=== PATIENT | female | born 1960 | race Caucasian/White ===

== ENCOUNTER 2023-12-18 08:16 | Day surgery (SDC) | payer MEDICARE ==
[~2023-12-18] VITALS: Ht 162.6 cm; Wt 139.2 kg
[~2023-12-18 08:16] MED LIST: ATOR40TA75 PO; BUSP5TA PO; CARV6.25 PO; DILT120C89 PO; FOLI1TAB11 PO; FURO80TA2 PO; GABA-282 PO; LISI40TA4 PO; PHENYLEPHRINE 10% OPHTH SOL 5ML OD PRN; SEMA0.5P SC; TREL1AER INH
[2023-12-18] MEDS: TROPICAMIDE 1% OPHTH SOLN 15ML OD SCH (10:14)
[2023-12-18] MEDS: ATROPINE SULFATE 1% OPHTH SOLN 2ML BTL OD SCH (10:14)
[2023-12-18] MEDS: PHENYLEPHRINE 2.5% OPHTH SOL 2ML OD SCH (10:15)
[2023-12-18] MEDS: LIDOCAINE 3.5 % 1ML OPHTH TOPICAL GEL OU ONE (10:15)
[2023-12-18] MEDS: OFLOXACIN 0.3 % (OCUFLOX) OPTH SOL 5ML OD ONE (10:15)
[2023-12-18] MEDS ORDERED: MIDAZOLAM INJ 2MG/2ML VIAL As Ordered ONE (12:05)
[2023-12-18] MEDS ORDERED: fentaNYL 100 MCG/2 ML INJECTION As Ordered ONE (12:05)
[2023-12-18] MEDS: CEFUROXIME 1MG/0.1ML INTRACAMERAL INJ As Ordered ONE (12:10)
[2023-12-18] MEDS: CARBACHOL 0.01% OPHTH SOLN 1.5ML VIAL As Ordered ONE (12:10)
[2023-12-18] MEDS: LIDOCAINE 1% SDV 5ML VIAL As Ordered ONE (12:10)
[2023-12-18] MEDS: BSS IRRIG/VANCO(10MG)/TOBRA(5MG)/EPINEPH(1:1000-0.5CC)500ML BAG-ORONLY As Ordered ONE (12:10)
[2023-12-18 12:24] VITALS: BP 121/60; TEMP 97.4; O2SAT 95
== END 2023-12-18 12:40 | disposition home or self-care (01) ==
LOC: M SDC 08:16
PROVIDERS: ATTEND Ophthalmology
DX: H25.11 Age-related nuclear cataract, right eye (principal); I11.0 Hypertensive heart disease with heart failure; I50.9 Heart failure, unspecified; J44.9 Chronic obstructive pulmonary disease, unspecified; E78.00 Pure hypercholesterolemia, unspecified; I25.2 Old myocardial infarction; Z95.5 Presence of coronary angioplasty implant and graft; Z79.899 Other long term (current) drug therapy; Z79.51 Long term (current) use of inhaled steroids; Z95.0 Presence of cardiac pacemaker; Z90.710 Acquired absence of both cervix and uterus
CPT/HCPCS: 66984; 92015; J0697; J2250; J3010; V2632

== ENCOUNTER 2023-12-25 10:11 | Day surgery (SDC) | payer MEDICARE ==
[~2023-12-25] VITALS: Ht 162.6 cm; Wt 139.3 kg
[~2023-12-25 10:11] MED LIST changes: +MIDAZOLAM INJ 2MG/2ML VIAL As Ordered ONE; -PHENYLEPHRINE 10% OPHTH SOL 5ML OD PRN; +PHENYLEPHRINE 10% OPHTH SOL 5ML OS PRN; +fentaNYL 100 MCG/2 ML INJECTION As Ordered ONE
[2023-12-25] MEDS: TROPICAMIDE 1% OPHTH SOLN 15ML OS SCH (11:18)
[2023-12-25] MEDS: LIDOCAINE 3.5 % 1ML OPHTH TOPICAL GEL OU ONE (11:18)
[2023-12-25] MEDS: PHENYLEPHRINE 2.5% OPHTH SOL 2ML OS SCH (11:18)
[2023-12-25] MEDS: ATROPINE SULFATE 1% OPHTH SOLN 2ML BTL OS SCH (11:18)
[2023-12-25] MEDS: OFLOXACIN 0.3 % (OCUFLOX) OPTH SOL 5ML OS ONE (11:18)
[2023-12-25] MEDS: CARBACHOL 0.01% OPHTH SOLN 1.5ML VIAL As Ordered ONE (11:59)
[2023-12-25] MEDS: BSS IRRIG/VANCO(10MG)/TOBRA(5MG)/EPINEPH(1:1000-0.5CC)500ML BAG-ORONLY As Ordered ONE (12:00)
[2023-12-25] MEDS: LIDOCAINE 1% SDV 5ML VIAL As Ordered ONE (12:00)
[2023-12-25] MEDS: CEFUROXIME 1MG/0.1ML INTRACAMERAL INJ As Ordered ONE (12:09)
[2023-12-25 12:17] VITALS: BP 152/78; TEMP 97.2; O2SAT 95
== END 2023-12-25 12:28 | disposition home or self-care (01) ==
LOC: M SDC 10:11
PROVIDERS: ATTEND Ophthalmology
DX: H25.12 Age-related nuclear cataract, left eye (principal); H57.03 Miosis; J44.9 Chronic obstructive pulmonary disease, unspecified; I11.0 Hypertensive heart disease with heart failure; I50.9 Heart failure, unspecified; E78.00 Pure hypercholesterolemia, unspecified; I25.2 Old myocardial infarction; Z79.899 Other long term (current) drug therapy; Z79.51 Long term (current) use of inhaled steroids; Z95.810 Presence of automatic (implantable) cardiac defibrillator; Z95.5 Presence of coronary angioplasty implant and graft; Z90.710 Acquired absence of both cervix and uterus; Z87.891 Personal history of nicotine dependence
CPT/HCPCS: 66982; J0697; J2250; J3010; V2632